=== PATIENT | male | born 1995 | race Caucasian/White ===

== ENCOUNTER → 2019-10-31 | Emergency (ER) | payer SELFPAY ==
[~2019-10-31] VITALS: Ht 167.6 cm; Wt 86.2 kg
[2019-10-31 16:39] VITALS: BP 142/76
--- NOTE | 2019-10-31 17:14 | NUR ---
PT ELOPED FROM FACILITY
== END | disposition left against medical advice (07) ==
LOC: ER 16:30
DX: M25.561 Pain in right knee (principal); Z53.21 Procedure and treatment not carried out due to patient leaving prior to being seen by health care provider

== ENCOUNTER 2020-11-20 05:08 | Emergency (ER) | payer MEDICAID ==
[~2020-11-20] VITALS: Ht 167.6 cm; Wt 81.6 kg
--- NOTE | 2020-11-20 05:32 | NUR ---
PATIENT BIBRA [id number] FROM [facility], STATING "I NEED MY MEDICAITONS REFILLED, I TAKE LITHIUM, I NEED TO GO TO A PSYCH FACILITY". PATIENT DENIES SI/HI AT THIS TIME. PATIENT IN CALM MOOD, COOPERATIVE. PATIENT V/S WNL, PATIENT STABLE ON ROOM AIR, PATIENT A/OX4. WILL CONTINUE TO MONITOR.
--- NOTE | 2020-11-20 05:34 | NUR ---
CALLED SECURITY FOR WANDING OF PATIENT.
[2020-11-20 06:07] LABS: BILIRUBIN,URINE SMALL (NEGATIVE); COLOR,URINE YELLOW (YELLOW); NITRITE, URINE Negative (NEGATIVE); PH,URINE 6.5 (5.0-8.0); PROTEIN,URINE 30 mg/dl (NEGATIVE); UGLUCOSE Negative (NEGATIVE)
[2020-11-20 06:18] LABS: BASOPHILS % (AUTO) 0.6 % (0.0-2.0); EOSINOPHILS % (AUTO) 1.2 % (0.0-6.0); HEMATOCRIT 41 % (39-51); HEMOGLOBIN 14.2 g/dL (13.5-17.5); LYMPHOCYTES # (AUTO) 2.6 /CMM (0.8-4.8); LYMPHOCYTES % (AUTO) 32.1 % (20.0-44.0); MEAN CORPUSCULAR HGB CONC 35 g/dl (31.0-36.0); MEAN CORPUSCULAR VOLUME 90 fL (80-96); MONOCYTES # (AUTO) 0.8 /CMM (0.1-1.30); MONOCYTES % (AUTO) 10.3 % (2.0-12.0); NEUTROPHILS # (AUTO) 4.5 /CMM (1.8-8.9); NEUTROPHILS % (AUTO) 55.8 % (43.0-81.0); PLATELET COUNT (AUTO) 263 /CMM (150-450); RED BLOOD CELL COUNT(AUTO) 4.53 MIL/uL (4.5-6.0)
[2020-11-20 06:25] LABS: CALCIUM, SERUM 8.3 mg/dL (8.5-10.1); CARBON DIOXIDE 27 mmol/L (21-32); CHLORIDE 104 mmol/L (98-107); GLUCOSE 104 mg/dL (74-106); POTASSIUM 4.2 mmol/L (3.5-5.1); SODIUM SERUM 139 mmol/L (136-145); UREA NITROGEN, BLOOD 25 mg/dL (7-18)
[2020-11-20 06:38] LABS: ALANINE AMINOTRANSFERASE 66 U/L (12-78); ALBUMIN 3.9 g/dL (3.4-5.0); ALKALINE PHOSPHATASE 75 U/L (46-116); ASPARTATE AMINOTRANSFERASE 29 U/L (15-37); BILIRUBIN,DIRECT 0.1 mg/dL (0.0-0.2); BILIRUBIN,TOTAL 0.5 mg/dL (0.2-1.0); TOTAL PROTEIN, SERUM 7.4 g/dL (6.4-8.2)
[2020-11-20 06:39] LABS: ACETAMINOPHEN 0 ug/ml (10-30); ALCOHOL, BLOOD < 3 mg/dL (0-0)
--- NOTE | 2020-11-20 06:51 | NUR ---
GUARD ENTRANCE REGISTRAR JEROMY PONCE AT BEDSIDE FOR EVALUATION
[2020-11-20 07:18] LABS: LEUKOCYTE ESTERASE ,URINE 1+ (NEGATIVE); RBC,URINE 0-2 /HPF (0-2)
[2020-11-20 07:19] LABS: BACTERIA,URINE None seen /HPF (None Seen); SQUAMOUS EPITHELIAL CELL,UR Few /HPF (None Seen)
--- NOTE | 2020-11-20 07:25 | NUR ---
covid 19 swab collected and sent to lab
--- NOTE | 2020-11-20 08:55 | NUR ---
PER PT HE IS NOT SUICIDAL ANYMORE AND WANTS TO BE DISCHARGE. DR.DELLAGROTTA CASTELAN.
--- NOTE | 2020-11-20 08:56 | NUR ---
Patient given written and verbal discharge instructions. Patient verbalizes understanding of instructions. Patient is ambulatory with steady gait. Refuses offer of long term placement. Patient given list of available shelters in surrounding area.
[2020-11-20 08:57] VITALS: BP 121/68
== END 2020-11-20 08:57 | disposition home or self-care (01) ==
LOC: ER 05:10
DX: F15.10 Other stimulant abuse, uncomplicated (principal); N39.0 Urinary tract infection, site not specified; Z59.0 Homelessness; F19.10 Other psychoactive substance abuse, uncomplicated; Z20.822 Contact with and (suspected) exposure to COVID-19
CPT/HCPCS: 36415; 80048; 80076; 80299; 80307; 80320; 81001; 85025; 87086; 87426; 99284; C9803; G0480